=== PATIENT | male | born 1970 | race Caucasian/White ===

== ENCOUNTER 2017-08-04 17:12 | Inpatient (IN) | payer OTHER ==
[2017-08-04 20:08] VITALS: BMI 21.9
--- NOTE | 2017-08-05 00:40 | HP ---
COWS - Scale Resting Pulse: 0= [place] 80 or Below Sweatin=Flushed/Facial Moisture Restless Observation: 1= Difficult to Sit Still Pupil Size: 1= Pupils >than Normal Bone or Joint Aches: 2= Severe Diffuse Aches Runny Nose/ Eye Tearin= Runny Nose/Eyes GI Upset > 30mins: 1= Stomach Cramp Tremor Observation: 2= Slight Tremor Visible Yawning Observation: 1= 1-2x During Session Anxiety or Irritability: 1=Feels Anxious/Irritable Goose Flesh Skin: 0=Smooth Skin COWS Score: 13 CIWA Score - CIWA Score Nausea/Vomitin-Mild Nausea/No Vomiting Muscle Tremors: 4-Moderate,w/Arms Extend Anxiety: 3 Agitation: 3 Paroxysmal Sweats: 2 Orientation: 0-Oriented Tacttile Disturbances: 0-None Auditory Disturbances: 0-None Visual Disturbances: 0-None Headache: 0-None Present CIWA-Ar Total Score: 13 Admission ROS S - HPI Chief Complaint: heroin and alcohol withdrawal symptoms Allergies/Adverse Reactions: Allergies Allergy/AdvReac Type Severity Reaction Status Date / Time No Known Allergies Allergy Verified 08/04/17 23:44 History of Present Illness: 47 years old male with a long history of alcohol and heroin withdrawal symptoms is seeking admission to detox. Patient has been to previous detox and reports 2 years of sobriety. He has medical history of Hep. C, anxiety and Depression. Denies suicide attempt and suicidal ideation at this time. Exam Limitations: No Limitations - Ebola screening Have you traveled outside of the country in the last 21 days: No (N) Have you had contact with anyone from an Ebola affected area: No Have you been sick,other than usual withdrawal symptoms: No Do you have a fever: No - Review of Systems Constitutional: Loss of Appetite, Malaise, Night Sweats, Changes in sleep EENT: reports: No Symptoms Reported Respiratory: reports: No Symptoms reported GI: reports: Nausea, Poor Appetite, Poor Fluid Intake, Abdominal cramping : reports: No Symptoms Reported Musculoskeletal: reports: Back Pain Integumentary: reports: Dryness, Flushing Neuro: reports: Tingling, Tremors Endocrine: reports: No Symptoms Reported Hematology: reports: No Symptoms Reported Psychiatric: reports: Mood/Affect Appropiate, Orientated x3, Anxious Other Systems: Reviewed and Negative Patient History - Patient Medical History Hx Anemia: No Hx Asthma: No Hx Chronic Obstructive Pulmonary Disease (COPD): No Hx Cancer: No Hx Cardiac Disorders: No Hx Congestive Heart Failure: No Hx Hypertension: No Hx Hypercholesterolemia: No Hx Pacemaker: No HX Cerebrovascular Accident: No Hx Seizures: No Hx Dementia: No Hx Diabetes: No Hx Gastrointestinal Disorders: No Hx Liver Disease: No Hx Genitourinary Disorders: No Hx Sexually Transmitted Disorders: No Hx Renal Disease (ESRD): No Hx Thyroid Disease: No Hx Human Immunodeficiency Virus (HIV): No Hx Hepatitis C: Yes (not treated) Hx Depression: Yes (no meds, never hospitalized) Hx Suicide Attempt: No Hx Bipolar Disorder: No Hx Schizophrenia: No Other Medical History: Anxiety - Not on medication - Patient Surgical History Past Surgical History: No Hx Neurologic Surgery: No Hx Cataract Extraction: No Hx Cardiac Surgery: No Hx Lung Surgery: No Hx Abdominal Surgery: No Hx Appendectomy: No Hx Cholecystectomy: No Hx Genitourinary Surgery: No Hx Orthopedic Surgery: No Anesthesia Reaction: No - PPD History Previous Implant?: Yes Documented Results: Negative w/proof - Reproductive History Patient is a Female of Child Bearing Age (11 -55 yrs old): No (male) - Smoking Cessation Smoking history: Current every day smoker Have you smoked in the past 12 months: Yes Aproximately how many cigarettes per day: 20 Hx Chewing Tobacco Use: No Initiated information on smoking cessation: Yes 'Breaking Loose' booklet given: 08/05/17 - Substance & Tx. History Hx Alcohol Use: Yes Substance Use Type: Heroin Hx Substance Use Treatment: Yes - Substances Abused Alcohol Route: Oral Frequency: Daily Amount used: LIQUOR- 1 PINT, BEER- 2 SIX PACK Age of first use: 20 Date of Last Use: 08/04/17 Heroin Route: Injection Frequency: Daily Amount used: 15 BAGS Age of first use: 31 Date of Last Use: 08/04/17 Family Disease History - Family Disease History Family Disease History: Diabetes: Mother (living, ), Heart Disease: Mother, Other: Father (living, healthy, etoh, drugs), Mother, Brother (three living, hep c, etoh, drugs), Sister (one - - drugs), Son (four sons - healthy) , Daughter (two daughters - healthy) Admission Physical Exam [facility] - Vital Signs Vital Signs: Vital Signs - 24 hr 08/04/17 20:07 Temperature 98.7 F Pulse Rate 72 Respiratory 19 Rate Blood Pressure 198/63 - Physical General Appearance: Yes: Moderate Distress, Tremorous, Irritable, Sweating, Anxious HEENTM: Yes: EOMI, Normal ENT Inspection, Normal Voice, ODILIA Respiratory: Yes: Lungs Clear, Normal Breath Sounds, No Respiratory Distress Neck: Yes: Supple Breast: Yes: Breast Exam Deferred Cardiology: Yes: Regular Rhythm, Regular Rate Abdominal: Yes: Normal Bowel Sounds, Soft Genitourinary: Yes: Within Normal Limits Back: Yes: Normal Inspection Musculoskeletal: Yes: Back pain Extremities: Yes: Tremors Neurological: Yes: Alert, Normal Mood/Affect Integumentary: Yes: Dry Lymphatic: Yes: Within Normal Limits - Diagnostic (1) Uncomplicated opioid dependence Current Visit: Yes Status: Chronic (2) Depression Current Visit: Yes Status: Chronic Qualifiers: Depression Type: unspecified Qualified Code(s): F32.9 - Major depressive disorder, single episode, unspecified (3) Anxiety Current Visit: Yes Status: Chronic (4) Alcohol dependence with uncomplicated withdrawal Current Visit: Yes Status: Chronic (5) Nicotine dependence Current Visit: Yes Status: Chronic Qualifiers: Nicotine product type: cigarettes Substance use status: uncomplicated Qualified Code(s): F17.210 - Nicotine dependence, cigarettes, uncomplicated Comment: counseled cessation - not ready (6) Hepatitis C Current Visit: Yes Status: Chronic Qualifiers: Viral hepatitis chronicity: chronic Hepatic coma status: without hepatic coma Qualified Code(s): B18.2 - Chronic viral hepatitis C Cleared for Admission [facility] - Detox or Rehab [facility] Level of Care: Medically Managed Detox Regimen/Protocol: Methadone/Librium S Breath Alcohol Content Breath Alcohol Content: 0 Urine Drug Screen - Results Drug Screen Negative: No Urine Drug Screen Results: OPI-Opiates
[2017-08-05] MEDS ORDERED: chlordiazePOXIDE HCL 25 MG CAPSULE PO ONE (00:47)
[2017-08-05] MEDS ORDERED: ACETAMINOPHEN 325 MG TABLET (FP) PO PRN (00:47)
[2017-08-05] MEDS ORDERED: MAG HYDROX/AL HYDROX/SIMETH 30 ML UNIT-DOSE CUP PO PRN (00:47)
[2017-08-05] MEDS ORDERED: MENTHOL/PHENOL 1 EACH UD MM PRN (00:47)
[2017-08-05] MEDS ORDERED: MAGNESIUM HYDROX 2400MG/30ML ORAL SUSPENSION 30 ML CUP PO PRN (00:47)
[2017-08-05] MEDS ORDERED: LOPERAMIDE HCL 2 MG CAPSULE PO PRN (00:47)
[2017-08-05] MEDS ORDERED: guaiFENesin/D-METHORPHAN HB 10 ML UNIT-DOSE CUPS PO PRN (00:47)
[2017-08-05] MEDS ORDERED: NICOTINE POLACRILEX 2 MG GUM BC PRN (00:47)
[2017-08-05] MEDS ORDERED: P-EPHED 60MG/TRIPROLIDI 2.5MG TABLET PO PRN (00:47)
[2017-08-05] MEDS ORDERED: METHADONE HCL 10 MG TABLET (FOR DETOX USE ONLY) PO ONE ×3 (00:47→22:00)
[2017-08-05] MEDS ORDERED: IBUPROFEN 400 MG TABLET (FP) PO PRN (00:47)
[2017-08-05] MEDS ORDERED: chlordiazePOXIDE HCL 25 MG CAPSULE PO PRN (00:47)
[2017-08-05] MEDS ORDERED: MAGNESIUM CITRATE 300 ML BOTTLE PO PRN (00:47)
[2017-08-05] MEDS: chlordiazePOXIDE HCL 25 MG CAPSULE PO SCH ×4 (06:00→22:28)
[2017-08-05 10:23] LABS: HEMATOCRIT 38.9 % (35.4-49); HEMOGLOBIN 13.5 GM/dL (11.7-16.9); MCH 32.8 pg (25.7-33.7); MCHC 34.6 g/dl (32.0-35.9); MEAN CELL VOLUME 94.7 fl (80-96); MEAN PLT VOLUME 9.2 fl (7.5-11.1); PLATELET COUNT 192 K/MM3 (134-434); RBC 4.11 M/mm3 (4.00-5.60); WHITE BLOOD COUNT 5.3 K/mm3 (4.0-10.0)
[2017-08-05] MEDS: PRENATAL VITAMINS W/ FOLIC ACID TABLET (FP) PO SCH (10:51)
[2017-08-05] MEDS: NICOTINE 14 MG/24 HOURS TOPICAL PATCH TD SCH (10:51)
[2017-08-05 11:07] LABS: CHLORIDE 107 mmol/L (98-107); POTASSIUM 3.9 mmol/L (3.5-5.1); SODIUM 143 mmol/L (136-145)
[2017-08-05 12:13] LABS: ALBUMIN 3.3 g/dl (3.4-5.0); ALK PHOS 81 U/L (45-117); ANION GAP 7 (8-16); BILIRUBIN,TOTAL 0.7 mg/dL (0.2-1.0); BLOOD UREA NITROGEN 14 mg/dL (7-18); CALCIUM 8.6 mg/dL (8.5-10.1); CO2 29 mmol/L (21-32); CREATININE 0.6 mg/dL (0.7-1.3); GLUCOSE,RANDOM 92 mg/dL (74-106); SGOT/AST 111 U/L (15-37); SGPT/ALT 100 U/L (12-78); TOT PROT 7.1 g/dl (6.4-8.2)
--- NOTE | 2017-08-05 13:33 | PN ---
[facility] CIWA - CIWA Score Nausea/Vomitin-No Nausea/No Vomiting Muscle Tremors: 4-Moderate,w/Arms Extend Anxiety: 4-Mod. Anxious/Guarded Agitation: 4-Moderately Restless Paroxysmal Sweats: 1-Minimal Palms Moist Orientation: 0-Oriented Tacttile Disturbances: 3-Moderate Itch/Numb/Burn Auditory Disturbances: 0-None Visual Disturbances: 0-None Headache: 0-None Present CIWA-Ar Total Score: 16 S COWS - Scale Resting Pulse: 0= [place] 80 or Below Sweatin= Chills/Flushing Restless Observation: 3= Extraneous Movement Pupil Size: 0= Normal to Room Light Bone or Joint Aches: 4=Acute Joint/Muscle Pain Runny Nose/ Eye Tearin= Nasal Congestion GI Upset > 30mins: 0= None Tremor Observation of Outstretched Hands: 2= Slight Tremor Visible Yawning Observation: 1= 1-2x During Session Anxiety or Irritability: 2=Irritable/Anxious Goose Flesh Skin: 0=Smooth Skin COWS Score: 14 S Progress Note (SOAP) Subjective: ANXIETY,TREMORS,SWEATS/CHILLS,MUSCLE ACHES. Objective: 08/05/17 13:32 Vital Signs Temperature 96.7 F L 08/05/17 09:48 Pulse Rate 70 08/05/17 09:48 Respiratory Rate 18 08/05/17 09:48 Blood Pressure 101/68 08/05/17 09:48 O2 Sat by Pulse Oximetry (%) Laboratory Tests 08/05/17 08/05/17 08/05/17 07:30 07:30 07:30 WBC 5.3 RBC 4.11 Hgb 13.5 Hct 38.9 MCV 94.7 MCH 32.8 MCHC 34.6 RDW 14.0 Plt Count 192 MPV 9.2 Sodium 143 Potassium 3.9 Chloride 107 Carbon Dioxide 29 Anion Gap 7 L BUN 14 Creatinine 0.6 L Creat Clearance w eGFR > 60 Random Glucose 92 Calcium 8.6 Total Bilirubin 0.7 D AST 111 H ALT 100 H Alkaline Phosphatase 81 D Total Protein 7.1 Albumin 3.3 L RPR Titer HIV 1&2 Antibody Screen Negative HIV P24 Antigen Negative 08/05/17 07:30 WBC RBC Hgb Hct MCV MCH MCHC RDW Plt Count MPV Sodium Potassium Chloride Carbon Dioxide Anion Gap BUN Creatinine Creat Clearance w eGFR Random Glucose Calcium Total Bilirubin AST ALT Alkaline Phosphatase Total Protein Albumin RPR Titer Nonreactive HIV 1&2 Antibody Screen HIV P24 Antigen Assessment: 08/05/17 13:32 WITHDRAWAL SX Plan: CONTINUE DETOX
--- NOTE | 2017-08-05 13:53 | EKG ---
Test Reason : Blood Pressure : / mmHG Vent. Rate : 057 BPM Atrial Rate : 057 BPM P-R Int : 164 ms QRS Dur : 094 ms QT Int : 388 ms P-R-T Axes : 041 020 035 degrees QTc Int : 377 ms SINUS BRADYCARDIA OTHERWISE NORMAL ECG NO PREVIOUS ECGS AVAILABLE Confirmed by RONALD MONROY, GAYLA ([id number]) on 08/05/2017 1:52:58 PM Referred By: Confirmed By:GAYLA CARDENAS MD
--- NOTE | 2017-08-05 14:00 | CONSULT ---
[facility] Psychiatric Consult - Data Date of interview: 08/05/17 Admission source: [facility] Substance Abuse History: Smoking history: Current every day smoker. Have you smoked in the past 12 months: Yes. Aproximately how many cigarettes per day: 20. Hx Chewing Tobacco Use: No. Initiated information on smoking cessation: Yes. 'Breaking Loose' booklet given: 08/05/17. - Substance & Tx. History. Hx Alcohol Use: Yes. Substance Use Type: Heroin. Hx Substance Use Treatment: Yes. - Substances Abused. Alcohol. Route: Oral. Frequency: Daily. Amount used: LIQUOR- 1 PINT, BEER- 2 SIX PACK. Age of first use: 20. Date of Last Use: 08/04/17. Heroin. Route: Injection. Frequency: Daily. Amount used: 15 BAGS. Age of first use: 31. Date of Last Use: 08/04/17 Additional Comment: Urine Drug Screen Results: OPI-Opiates.Noted.
[2017-08-05 19:59] LABS: URINE APPEARANCE CLEAR; URINE BILIRUBIN NEGATIVE (<2.0 mg/dL); URINE COLOR STRAW; URINE GLUCOSE (UA) NEGATIVE (NEGATIVE); URINE KETONE NEGATIVE (NEGATIVE); URINE LEUK ESTERASE NEGATIVE (NEGATIVE); URINE NITRITE NEGATIVE (NEGATIVE); URINE PROTEIN NEGATIVE (NEGATIVE); URINE UROBILINOGEN NEGATIVE mg/dL (0.2-1.0)
[2017-08-05] MEDS ORDERED: MELATONIN 5 MG TABLETS PO PRN (22:00)
[2017-08-05] MEDS ORDERED: THIAMINE HCL 100 MG TABLET (FP) PO SCH (22:00)
[2017-08-06] MEDS: chlordiazePOXIDE HCL 25 MG CAPSULE PO SCH ×2 (05:47→10:46)
[2017-08-06] MEDS ORDERED: METHADONE HCL 10 MG TABLET (FOR DETOX USE ONLY) PO SCH (10:00)
[2017-08-06] MEDS ORDERED: METHADONE HCL 5 MG TABLET (FOR DETOX USE ONLY) PO SCH (10:00)
[2017-08-06] MEDS: PRENATAL VITAMINS W/ FOLIC ACID TABLET (FP) PO SCH (10:46)
[2017-08-06] MEDS: NICOTINE 14 MG/24 HOURS TOPICAL PATCH TD SCH (10:46)
--- NOTE | 2017-08-06 12:36 | PN ---
S CIWA - CIWA Score Nausea/Vomitin-No Nausea/No Vomiting Muscle Tremors: 4-Moderate,w/Arms Extend Anxiety: 4-Mod. Anxious/Guarded Agitation: 4-Moderately Restless Paroxysmal Sweats: 1-Minimal Palms Moist Orientation: 0-Oriented Tacttile Disturbances: 0-None Auditory Disturbances: 0-None Visual Disturbances: 0-None Headache: 0-None Present CIWA-Ar Total Score: 13 BHS COWS - Scale Resting Pulse: 0= [place] 80 or Below Sweatin= Chills/Flushing Restless Observation: 3= Extraneous Movement Pupil Size: 2= Moderately Dilated Bone or Joint Aches: 1= Mild Discomfort Runny Nose/ Eye Tearin= Nasal Congestion GI Upset > 30mins: 0= None Tremor Observation of Outstretched Hands: 1= Tremor [place], Not Seen Yawning Observation: 1= 1-2x During Session Anxiety or Irritability: 2=Irritable/Anxious Goose Flesh Skin: 0=Smooth Skin COWS Score: 12 S Progress Note (SOAP) Subjective: SLIGHT ANXIETY,SWEATS/CHILLS. PT IS OOB AMBULATING ON UNIT WITH STEADY GAIT. PT REQUESTS MEDICATION TAPER ADJUSTMENT FOR EARLY DISCHARGE.. Objective: 08/06/17 12:34 ALERT O X 3. Vital Signs 08/06/17 08/06/17 06:28 09:17 Temperature 96.5 F L 96.5 F L Pulse Rate 56 L 57 L Respiratory 18 18 Rate Blood Pressure 115/78 120/71 Laboratory Tests 08/05/17 08/05/17 08/05/17 07:30 07:30 07:30 WBC 5.3 RBC 4.11 Hgb 13.5 Hct 38.9 MCV 94.7 MCH 32.8 MCHC 34.6 RDW 14.0 Plt Count 192 MPV 9.2 Sodium 143 Potassium 3.9 Chloride 107 Carbon Dioxide 29 Anion Gap 7 L BUN 14 Creatinine 0.6 L Creat Clearance w eGFR > 60 Random Glucose 92 Calcium 8.6 Total Bilirubin 0.7 D AST 111 H ALT 100 H Alkaline Phosphatase 81 D Total Protein 7.1 Albumin 3.3 L Urine Color Urine Appearance Urine pH Ur Specific [place] Urine Protein Urine Glucose (UA) Urine Ketones Urine Blood Urine Nitrite Urine Bilirubin Urine Urobilinogen Ur Leukocyte Esterase RPR Titer HIV 1&2 Antibody Screen Negative HIV P24 Antigen Negative 08/05/17 08/05/17 07:30 15:00 WBC RBC Hgb Hct MCV MCH MCHC RDW Plt Count MPV Sodium Potassium Chloride Carbon Dioxide Anion Gap BUN Creatinine Creat Clearance w eGFR Random Glucose Calcium Total Bilirubin AST ALT Alkaline Phosphatase Total Protein Albumin Urine Color Straw Urine Appearance Clear Urine pH 9.0 H Ur Specific [place] 1.009 Urine Protein Negative Urine Glucose (UA) Negative Urine Ketones Negative Urine Blood Negative Urine Nitrite Negative Urine Bilirubin Negative Urine Urobilinogen Negative Ur Leukocyte Esterase Negative RPR Titer Nonreactive HIV 1&2 Antibody Screen HIV P24 Antigen 08/06/17 12:35 Assessment: 08/06/17 12:34 WITHDRAWAL SX Plan: CONTINUE DETOX METHADONE TAPER ADJUSTED DIRECTED.
[2017-08-06 13:19] VITALS: BP 110/73; PULSE 72; TEMP 96.1
--- NOTE | 2017-08-06 18:15 | DS ---
[facility] Detox Discharge Summary Admission Date: 08/04/17 Discharge Date: 08/06/17 - History Present History: Alcohol Dependence, Opioid Dependence Additional Comments: Patient declined to continue with detox stating family matters. All efforts to encourage completion and staying in treatment including adjustment of tapered methadone dose failed. Patient is alert o x 3. In NAD. Pertinent Past History: Please see dx below. - Physical Exam Results Vital Signs: Vital Signs Temperature 96.1 F L 08/06/17 13:18 Pulse Rate 72 08/06/17 13:18 Respiratory Rate 18 08/06/17 13:18 Blood Pressure 110/73 08/06/17 13:18 O2 Sat by Pulse Oximetry (%) Pertinent Admission Physical Exam Findings: Withdrawal sx Laboratory Tests 08/05/17 08/05/17 08/05/17 07:30 07:30 07:30 WBC 5.3 RBC 4.11 Hgb 13.5 Hct 38.9 MCV 94.7 MCH 32.8 MCHC 34.6 RDW 14.0 Plt Count 192 MPV 9.2 Sodium 143 Potassium 3.9 Chloride 107 Carbon Dioxide 29 Anion Gap 7 L BUN 14 Creatinine 0.6 L Creat Clearance w eGFR > 60 Random Glucose 92 Calcium 8.6 Total Bilirubin 0.7 D AST 111 H ALT 100 H Alkaline Phosphatase 81 D Total Protein 7.1 Albumin 3.3 L Urine Color Urine Appearance Urine pH Ur Specific [place] Urine Protein Urine Glucose (UA) Urine Ketones Urine Blood Urine Nitrite Urine Bilirubin Urine Urobilinogen Ur Leukocyte Esterase RPR Titer HIV 1&2 Antibody Screen Negative HIV P24 Antigen Negative 08/05/17 08/05/17 07:30 15:00 WBC RBC Hgb Hct MCV MCH MCHC RDW Plt Count MPV Sodium Potassium Chloride Carbon Dioxide Anion Gap BUN Creatinine Creat Clearance w eGFR Random Glucose Calcium Total Bilirubin AST ALT Alkaline Phosphatase Total Protein Albumin Urine Color Straw Urine Appearance Clear Urine pH 9.0 H Ur Specific [place] 1.009 Urine Protein Negative Urine Glucose (UA) Negative Urine Ketones Negative Urine Blood Negative Urine Nitrite Negative Urine Bilirubin Negative Urine Urobilinogen Negative Ur Leukocyte Esterase Negative RPR Titer Nonreactive HIV 1&2 Antibody Screen HIV P24 Antigen - Treatment Hospital Course: Discharged Condition Good - Medication Discharge Medications: Ambulatory Orders NK [No Known Home Medication] 08/04/17 - Diagnosis (1) Alcohol dependence with uncomplicated withdrawal Status: Acute (2) Hepatitis C Status: Chronic Qualifiers: Viral hepatitis chronicity: chronic Hepatic coma status: without hepatic coma Qualified Code(s): B18.2 - Chronic viral hepatitis C (3) Nicotine dependence Status: Acute Qualifiers: Nicotine product type: cigarettes Substance use status: in withdrawal Qualified Code(s): F17.213 - Nicotine dependence, cigarettes, with withdrawal (4) Uncomplicated opioid dependence Status: Acute - AMA Did Patient Leave Against Medical Advice: Yes (AMA)
[2017-08-07] MEDS ORDERED: chlordiazePOXIDE 5 MG CAPSULE PO SCH (05:00)
[2017-08-07] MEDS ORDERED: METHADONE HCL 5 MG TABLET (FOR DETOX USE ONLY) PO SCH (10:00)
[2017-08-07] MEDS ORDERED: METHADONE HCL 10 MG TABLET (FOR DETOX USE ONLY) PO SCH (10:00)
[2017-08-08] MEDS ORDERED: chlordiazePOXIDE HCL 10 MG CAPSULE PO SCH (05:00)
[2017-08-08] MEDS ORDERED: METHADONE HCL 5 MG TABLET (FOR DETOX USE ONLY) PO SCH (06:00)
[2017-08-09] MEDS ORDERED: METHADONE HCL 10 MG TABLET (FOR DETOX USE ONLY) PO SCH (10:00)
[2017-08-10] MEDS ORDERED: METHADONE HCL 5 MG TABLET (FOR DETOX USE ONLY) PO SCH (06:00)
== END 2017-08-06 16:20 | disposition left against medical advice (07) | DRG 770 ==
LOC: YASAS 17:12 → Y3N 22:54
PROVIDERS: ADMIT Internal Medicine; ATTEND Internal Medicine
PROC: HZ2ZZZZ Detoxification Services for Substance Abuse Treatment (ICD-10-PCS; principal; 2017-08-04)
DX: F11.20 Opioid dependence, uncomplicated (principal); F10.230 Alcohol dependence with withdrawal, uncomplicated; F17.213 Nicotine dependence, cigarettes, with withdrawal; B18.2 Chronic viral hepatitis C; F32.9 Major depressive disorder, single episode, unspecified; F41.9 Anxiety disorder, unspecified
CPT/HCPCS: 36415; 80053; 81003; 85027; 86593; 87389; 93005; 93010

== ENCOUNTER 2021-04-15 14:58 | Inpatient (IN) | payer OTHER ==
[2021-04-15] MEDS ORDERED: diazePAM CARPU-JECT 10 MG/2 ML DISP.SYRIN IVPUSH ONE (15:19)
[2021-04-15] MEDS ORDERED: diazePAM CARPU-JECT 10 MG/2 ML DISP.SYRIN ONE ×2 (15:20→15:28)
[2021-04-15] MEDS ORDERED: SODIUM CHLORIDE 0.9% 500 ML INFUS.BAG IV ONE (15:30)
[2021-04-15] MEDS ORDERED: LORazepam 2 MG/ML SDV VIAL IVPUSH ONE (15:30)
[2021-04-15] MEDS ORDERED: RAPID SEQUENCE INTUBATION KIT NR ONE (15:40)
[2021-04-15] MEDS ORDERED: PROPOFOL 1,000,000 MCG/100 ML VIAL ONE (15:43)
[2021-04-15] MEDS ORDERED: PROPOFOL 20 ML ONE (15:43)
[2021-04-15] MEDS ORDERED: PROPOFOL 1,000,000 MCG/100 ML VIAL IVPB SCH (16:00)
[2021-04-15 16:08] LABS: BASO % 1.1 % (0-2.0); EOS % 0.8 % (0-4.5); HEMATOCRIT 41.2 % (35.4-49); HEMOGLOBIN 13.5 GM/dL (11.7-16.9); MCH 36.7 pg (25.7-33.7); MCHC 32.8 g/dl (32.0-35.9); MEAN CELL VOLUME 111.8 fl (80-96); MEAN PLT VOLUME 10.2 fl (7.5-11.1); MONO % 6.7 % (3.8-10.2); NEUT % 61.4 % (42.8-82.8); PLATELET COUNT 124 10^3/uL (134-434); RBC 3.68 M/mm3 (4.00-5.60); RDW 14.1 % (11.9-15.9); WHITE BLOOD COUNT 9.6 K/mm3 (4.0-10.0)
[2021-04-15 16:24] LABS: INR 1.57 (0.83-1.09); PROTHROMBIN TIME (PATIENT) 18.1 SEC (9.7-13.0)
[2021-04-15 16:26] LABS: ACTIVATED PTT 33.6 SECONDS (25.2-36.5)
[2021-04-15] MEDS ORDERED: ROCURONIUM BROMIDE 50 MG/5 ML VIAL IV ONE (16:42)
[2021-04-15 16:47] LABS: ARTERIAL BLD GAS O2 SATURATION 95.1 % (95-98); ARTERIAL BLOOD GAS BASE EXCESS -5.2 mmol/L (-2-2); ARTERIAL BLOOD GAS pH 7.329 (7.350-7.450)
[2021-04-15] MEDS: PROPOFOL 1,000,000 MCG/100 ML VIAL IVPB SCH (17:04)
[2021-04-15 17:30] LABS: ALLENS TEST POSITIVE
[2021-04-15 17:32] LABS: VENT RATE 14
[2021-04-15] MEDS ORDERED: FOLIC ACID INJECTION - 1 MG, THIAMINE HCL 100 MG, MULTIVIT INJECTION ADULT 10 ML in SOD... IVPB ONE (17:42)
[2021-04-15 17:45] LABS: MACROCYTOSIS 3+; PLATELET ESTIMATE DECREASED
[2021-04-15 17:54] LABS: LACTIC ACID 10.2 mmol/L (0.4-2.0)
[2021-04-15] MEDS ORDERED: LACTATED RINGERS SOLUTION 1000 ML INFUS.BAG IV ONE (17:56)
[2021-04-15 17:57] LABS: CHLORIDE 106 mmol/L (98-107); SODIUM 144 mmol/L (136-145)
[2021-04-15 17:59] LABS: ALBUMIN 2.5 g/dl (3.4-5.0); ANION GAP 18 MMOL/L (8-16); CALCIUM 9.1 mg/dL (8.5-10.1); CO2 20 mmol/L (21-32)
[2021-04-15 18:00] LABS: BLOOD UREA NITROGEN 8.6 mg/dL (7-18); GLUCOSE,RANDOM 102 mg/dL (74-106)
[2021-04-15 18:02] LABS: CREATININE 0.7 mg/dL (0.55-1.3); SGOT/AST 241 U/L (15-37); SGPT/ALT 88 U/L (13-61)
[2021-04-15 18:04] LABS: BILIRUBIN,TOTAL 3.8 mg/dL (0.2-1); TOT PROT 9.7 g/dl (6.4-8.2)
[2021-04-15 18:05] LABS: ALK PHOS 160 U/L (45-117)
[2021-04-15] MEDS ORDERED: LACTULOSE 20 GM/30 ML UDC (FOR ORAL USE ONLY) PO PRN ×2 (18:16→18:20)
[2021-04-15 18:37] LABS: LIPASE 6667 U/L (73-393)
[2021-04-15 19:07] LABS: MAGNESIUM 1.7 mg/dL (1.8-2.4)
[2021-04-15 19:10] LABS: TRIGLYCERIDES 91 mg/dL (0-150)
[2021-04-15 19:19] LABS: ARTERIAL BLD GAS O2 SATURATION 98.7 % (95-98); ARTERIAL BLOOD GAS PO2 128.3 mmHg (80-100); ARTERIAL BLOOD GAS pH 7.431 (7.350-7.450)
[2021-04-15 19:20] LABS: ALLENS TEST POSITIVE
[2021-04-15 19:21] LABS: VENT MODE DC; VENT RATE 18
[2021-04-15] MEDS: MIDAZOLAM IN 0.9 % SOD.CHLORID 100 MG/100 ML PLAST..BAG IVPB SCH (20:18)
[2021-04-15] MEDS: LACTATED RINGERS SOLUTION 1,000 ML/1,000 ML INFUS.BAG IV SCH (20:19)
[2021-04-15] MEDS: KCL 10 MEQ IVPB 10 MEQ/100 ML INFUS.BAG IVPB SCH ×2 (20:41→22:42)
[2021-04-15] MEDS: CHLORHEXIDINE GLUCONATE 4% CLEANSER FOR DECOLONIZATION TP SCH (22:42)
[2021-04-15] MEDS: MUPIROCIN 2% TOPICAL OINTMENT FOR DECOLONIZATION NS SCH (22:42)
[2021-04-15] MEDS ORDERED: KETOROLAC TROMETHAMINE 30 MG/1 ML VIAL IVPUSH ONE (23:02)
[2021-04-15] MEDS ORDERED: ROCURONIUM BROMIDE IVPB SCH (23:30)
[2021-04-15] MEDS ORDERED: ROCURONIUM BROMIDE 500 MG/300 ML BAG IVPB SCH (23:45)
[2021-04-16 01:26] LABS: EPI CELLS 15 /uL (0-25.1); HYALINE CASTS 2 /uL (0-3.1); URINE APPEARANCE CLEAR; URINE BACTERIA 4 /uL (0-1359); URINE BILIRUBIN 1+ (NEGATIVE); URINE COLOR DK YELLOW; URINE GLUCOSE (UA) NEGATIVE (NEGATIVE); URINE KETONE 1+ (NEGATIVE); URINE LEUK ESTERASE TRACE (NEGATIVE); URINE NITRITE NEGATIVE (NEGATIVE); URINE PROTEIN 1+ (NEGATIVE); URINE RBC 48 /uL (0-23.9); URINE WBC 17 /uL (0-25.8)
[2021-04-16] MEDS: KCL 10 MEQ IVPB 10 MEQ/100 ML INFUS.BAG IVPB SCH (02:13)
[2021-04-16 07:15] LABS: BASO % 0.1 % (0-2.0); HEMATOCRIT 35.8 % (35.4-49); HEMOGLOBIN 11.8 GM/dL (11.7-16.9); MCH 36.7 pg (25.7-33.7); MEAN CELL VOLUME 111.1 fl (80-96); MEAN PLT VOLUME 10.6 fl (7.5-11.1); MONO % 5.4 % (3.8-10.2); NEUT % 88.5 % (42.8-82.8); PLATELET COUNT 104 10^3/uL (134-434); RBC 3.23 M/mm3 (4.00-5.60); RDW 14.5 % (11.9-15.9); WHITE BLOOD COUNT 9.7 K/mm3 (4.0-10.0)
[2021-04-16 07:22] LABS: INR 1.77 (0.83-1.09); PROTHROMBIN TIME (PATIENT) 20.5 SEC (9.7-13.0)
[2021-04-16 07:25] LABS: ACTIVATED PTT 34.2 SECONDS (25.2-36.5)
[2021-04-16 07:50] LABS: MAGNESIUM 1.5 mg/dL (1.8-2.4)
[2021-04-16 07:53] LABS: CREATININE 0.6 mg/dL (0.55-1.3); PHOSPHOROUS 2.2 mg/dL (2.5-4.9)
[2021-04-16 07:54] LABS: TOT PROT 8.4 g/dl (6.4-8.2)
[2021-04-16 07:55] LABS: BILIRUBIN,TOTAL 2.4 mg/dL (0.2-1)
[2021-04-16] MEDS ORDERED: MAGNESIUM SULF 50% (8.12 MEQ/2 ML-1 GM VIAL) IVPB ONE (09:04)
[2021-04-16] MEDS ORDERED: NAPH,MB-DB/K PH,MBDB POWDER PACKET PO ONE (09:04)
[2021-04-16] MEDS: THIAMINE HCL 200 MG/2 ML VIAL IVPB SCH (09:56)
[2021-04-16] MEDS: ENOXAPARIN NA (PORCINE) 40 MG/0.4 ML DISP.SYRIN SQ SCH (09:57)
[2021-04-16] MEDS: PANTOPRAZOLE SODIUM 40 MG VIAL IVPUSH SCH (09:57)
[2021-04-16] MEDS: FOLIC ACID 1 MG TABLET (FP) PO SCH (09:57)
[2021-04-16] MEDS: MUPIROCIN 2% TOPICAL OINTMENT FOR DECOLONIZATION NS SCH (09:57)
[2021-04-16] MEDS: PROPOFOL 1,000,000 MCG/100 ML VIAL IVPB SCH ×2 (09:58→13:40)
[2021-04-16 11:58] LABS: BILIRUBIN,DIRECT 1.8 mg/dL (0.0-0.2)
[2021-04-16 12:02] LABS: N-TERMINAL BNP 241.2 pg/ml (5-125)
[2021-04-16] MEDS ORDERED: PHYTONADIONE 10 MG/1 ML AMP IVPB ONE (14:56)
[2021-04-17] MEDS: PROPOFOL 1,000,000 MCG/100 ML VIAL IVPB SCH ×2 (00:29→05:31)
[2021-04-17] MEDS: LACTATED RINGERS SOLUTION 1,000 ML/1,000 ML INFUS.BAG IV SCH ×2 (05:30→13:35)
[2021-04-17] MEDS: MIDAZOLAM IN 0.9 % SOD.CHLORID 100 MG/100 ML PLAST..BAG IVPB SCH ×2 (05:30→05:31)
[2021-04-17 07:38] LABS: BASO % 0.4 % (0-2.0); EOS % 0.3 % (0-4.5); HEMATOCRIT 34.2 % (35.4-49); HEMOGLOBIN 11.8 GM/dL (11.7-16.9); LYMPH % 13.8 % (8-40); MCHC 34.4 g/dl (32.0-35.9); MEAN CELL VOLUME 110.3 fl (80-96); MONO % 6.7 % (3.8-10.2); NEUT % 78.8 % (42.8-82.8); PLATELET COUNT 81 10^3/uL (134-434); RDW 14.4 % (11.9-15.9); WHITE BLOOD COUNT 9.6 K/mm3 (4.0-10.0)
[2021-04-17 08:05] LABS: CALCIUM 7.4 mg/dL (8.5-10.1)
[2021-04-17 08:07] LABS: ALBUMIN 1.6 g/dl (3.4-5.0); BLOOD UREA NITROGEN 10.6 mg/dL (7-18)
[2021-04-17 08:10] LABS: ALBUMIN 1.6 g/dl (3.4-5.0); CREATININE 0.5 mg/dL (0.55-1.3); PHOSPHOROUS 2.2 mg/dL (2.5-4.9); TOT PROT 7.1 g/dl (6.4-8.2)
[2021-04-17 08:13] LABS: BILIRUBIN,DIRECT 1.6 mg/dL (0.0-0.2)
[2021-04-17 08:14] LABS: BILIRUBIN,TOTAL 2.1 mg/dL (0.2-1); TOT PROT 7.2 g/dl (6.4-8.2)
[2021-04-17 08:26] LABS: INR 1.82 (0.83-1.09); PROTHROMBIN TIME (PATIENT) 21.1 SEC (9.7-13.0)
[2021-04-17] MEDS: FOLIC ACID 1 MG TABLET (FP) PO SCH (09:20)
[2021-04-17] MEDS: MUPIROCIN 2% TOPICAL OINTMENT FOR DECOLONIZATION NS SCH ×2 (09:21→22:30)
[2021-04-17] MEDS: THIAMINE HCL 200 MG/2 ML VIAL IVPB SCH (09:21)
[2021-04-17] MEDS: ENOXAPARIN NA (PORCINE) 40 MG/0.4 ML DISP.SYRIN SQ SCH (09:21)
[2021-04-17] MEDS: PANTOPRAZOLE SODIUM 40 MG VIAL IVPUSH SCH (09:21)
[2021-04-17] MEDS: CEFTRIAXONE 1 GM in DEXTROSE 5%-WATER - 50 ML IVPB SCH (11:30)
[2021-04-17] MEDS ORDERED: cefTRIAXone SODIUM 1 GM VIAL ONE (11:39)
[2021-04-17] MEDS ORDERED: DEXTROSE 5%-WATER - 50 ML IVPB ONE (11:39)
[2021-04-17] MEDS ORDERED: FUROSEMIDE 40 MG/4 ML INJECTABLE VIAL IVPUSH ONE (11:45)
[2021-04-17] MEDS: SPIRONOLACTONE 25 MG TABLET PO SCH (11:57)
[2021-04-17] MEDS ORDERED: MIDAZOLAM HCL 2 MG/2 ML SINGLE DOSE VIAL IVPUSH ONE ×2 (12:47→12:49)
[2021-04-17] MEDS: DEXMEDETOMIDINE IN 0.9 % NACL 400 MCG/100 ML VIAL IVPB SCH (15:40)
[2021-04-17] MEDS: CHLORHEXIDINE GLUCONATE 4% CLEANSER FOR DECOLONIZATION TP SCH (22:31)
[2021-04-18] MEDS: DEXMEDETOMIDINE IN 0.9 % NACL 400 MCG/100 ML VIAL IVPB SCH (04:00)
[2021-04-18] MEDS: LACTATED RINGERS SOLUTION 1,000 ML/1,000 ML INFUS.BAG IV SCH ×2 (04:00→13:07)
[2021-04-18 08:10] LABS: BASO % 0.5 % (0-2.0); EOS % 1.2 % (0-4.5); HEMATOCRIT 36.2 % (35.4-49); LYMPH % 22.1 % (8-40); MCH 37.2 pg (25.7-33.7); MCHC 33.1 g/dl (32.0-35.9); MEAN CELL VOLUME 112.4 fl (80-96); MEAN PLT VOLUME 10.5 fl (7.5-11.1); MONO % 8.3 % (3.8-10.2); NEUT % 67.9 % (42.8-82.8); PLATELET COUNT 94 10^3/uL (134-434); RBC 3.22 M/mm3 (4.00-5.60); RDW 14.4 % (11.9-15.9); WHITE BLOOD COUNT 9.6 K/mm3 (4.0-10.0)
[2021-04-18 08:23] LABS: INR 1.63 (0.83-1.09); PROTHROMBIN TIME (PATIENT) 18.8 SEC (9.7-13.0)
[2021-04-18] MEDS ORDERED: MIDAZOLAM HCL 2 MG/2 ML SINGLE DOSE VIAL IVPUSH ONE (08:23)
[2021-04-18] MEDS ORDERED: MIDAZOLAM HCL 2 MG/2 ML SINGLE DOSE VIAL ONE (08:24)
[2021-04-18 08:33] LABS: ALBUMIN 1.5 g/dl (3.4-5.0); BLOOD UREA NITROGEN 15.4 mg/dL (7-18); CALCIUM 7.8 mg/dL (8.5-10.1); MAGNESIUM 1.9 mg/dL (1.8-2.4)
[2021-04-18 08:34] LABS: BILIRUBIN,DIRECT 1.9 mg/dL (0.0-0.2)
[2021-04-18 08:36] LABS: CREATININE 0.6 mg/dL (0.55-1.3); PHOSPHOROUS 2.6 mg/dL (2.5-4.9)
[2021-04-18 08:37] LABS: BILIRUBIN,TOTAL 2.9 mg/dL (0.2-1)
[2021-04-18 08:38] LABS: TOT PROT 7.1 g/dl (6.4-8.2)
[2021-04-18 08:42] LABS: BILIRUBIN,TOTAL 2.9 mg/dL (0.2-1)
[2021-04-18] MEDS ORDERED: cefTRIAXone SODIUM 1 GM VIAL ONE (10:00)
[2021-04-18] MEDS ORDERED: DEXTROSE 5%-WATER - 50 ML IVPB ONE (10:01)
[2021-04-18] MEDS: THIAMINE HCL 200 MG/2 ML VIAL IVPB SCH (10:25)
[2021-04-18] MEDS: CEFTRIAXONE 1 GM in DEXTROSE 5%-WATER - 50 ML IVPB SCH (10:25)
[2021-04-18] MEDS: MUPIROCIN 2% TOPICAL OINTMENT FOR DECOLONIZATION NS SCH ×3 (10:25→22:30)
[2021-04-18] MEDS: SPIRONOLACTONE 25 MG TABLET PO SCH (10:25)
[2021-04-18] MEDS: FOLIC ACID 1 MG TABLET (FP) PO SCH (10:25)
[2021-04-18] MEDS: PANTOPRAZOLE SODIUM 40 MG VIAL IVPUSH SCH (10:25)
[2021-04-18] MEDS ORDERED: LORazepam 2 MG/ML SDV VIAL IVPUSH ONE (11:48)
[2021-04-18] MEDS ORDERED: MIDAZOLAM 100 MG/100 ML MG IVPB ONE (12:47)
[2021-04-18] MEDS: MIDAZOLAM 100 MG in SODIUM CHLORIDE 100 ML IVPB SCH (12:52)
[2021-04-18] MEDS: CHLORHEXIDINE GLUCONATE 4% CLEANSER FOR DECOLONIZATION TP SCH ×2 (20:29→23:04)
[2021-04-18] MEDS: LACTULOSE 20 GM/30 ML UDC (FOR ORAL USE ONLY) NGT SCH (23:03)
[2021-04-19] MEDS: DEXMEDETOMIDINE IN 0.9 % NACL 400 MCG/100 ML VIAL IVPB SCH ×2 (07:00→21:29)
[2021-04-19 07:15] LABS: BASO % 0.8 % (0-2.0); EOS % 2.1 % (0-4.5); HEMATOCRIT 36.1 % (35.4-49); HEMOGLOBIN 12.1 GM/dL (11.7-16.9); LYMPH % 25.1 % (8-40); MCH 37.7 pg (25.7-33.7); MCHC 33.5 g/dl (32.0-35.9); MEAN CELL VOLUME 112.3 fl (80-96); MEAN PLT VOLUME 10.1 fl (7.5-11.1); MONO % 10.8 % (3.8-10.2); NEUT % 61.2 % (42.8-82.8); PLATELET COUNT 96 10^3/uL (134-434); RBC 3.22 M/mm3 (4.00-5.60); RDW 14.1 % (11.9-15.9); WHITE BLOOD COUNT 8.1 K/mm3 (4.0-10.0)
[2021-04-19 07:36] LABS: CALCIUM 7.4 mg/dL (8.5-10.1)
[2021-04-19 07:37] LABS: ALBUMIN 1.4 g/dl (3.4-5.0); BLOOD UREA NITROGEN 16.3 mg/dL (7-18)
[2021-04-19 07:39] LABS: BILIRUBIN,DIRECT 1.7 mg/dL (0.0-0.2)
[2021-04-19 07:40] LABS: CREATININE 0.5 mg/dL (0.55-1.3)
[2021-04-19 07:41] LABS: BILIRUBIN,TOTAL 2.8 mg/dL (0.2-1)
[2021-04-19 08:31] LABS: INR 1.68 (0.83-1.09); PROTHROMBIN TIME (PATIENT) 19.4 SEC (9.7-13.0)
[2021-04-19] MEDS ORDERED: cefTRIAXone SODIUM 1 GM VIAL ONE (09:18)
[2021-04-19] MEDS ORDERED: DEXTROSE 5%-WATER - 50 ML IVPB ONE (09:19)
[2021-04-19] MEDS: PANTOPRAZOLE SODIUM 40 MG VIAL IVPUSH SCH (09:26)
[2021-04-19] MEDS: LACTULOSE 20 GM/30 ML UDC (FOR ORAL USE ONLY) NGT SCH (09:26)
[2021-04-19] MEDS: CEFTRIAXONE 1 GM in DEXTROSE 5%-WATER - 50 ML IVPB SCH (09:26)
[2021-04-19] MEDS: THIAMINE HCL 200 MG/2 ML VIAL IVPB SCH (09:27)
[2021-04-19] MEDS: FOLIC ACID 1 MG TABLET (FP) PO SCH (09:27)
[2021-04-19] MEDS: MUPIROCIN 2% TOPICAL OINTMENT FOR DECOLONIZATION NS SCH ×2 (09:27→21:29)
[2021-04-19 09:38] LABS: ANISOCYTOSIS 0; MACROCYTOSIS 2+; OVALOCYTE 1+; PLATELET ESTIMATE DECREASED; TEAR DROP CELLS 1+
[2021-04-19] MEDS ORDERED: MIDAZOLAM IN 0.9 % SOD.CHLORID 1 MG/1 ML PLAST..BAG ONE ×2 (10:11→21:32)
[2021-04-19] MEDS: MIDAZOLAM 100 MG in SODIUM CHLORIDE 100 ML IVPB SCH (11:35)
[2021-04-19] MEDS: LACTATED RINGERS SOLUTION 1,000 ML/1,000 ML INFUS.BAG IV SCH (13:00)
[2021-04-19] MEDS: DEXTROSE 5%-LACTATED RINGERS 1,000 ML IV SCH ×2 (16:05→23:00)
[2021-04-19] MEDS: CHLORHEXIDINE GLUCONATE 4% CLEANSER FOR DECOLONIZATION TP SCH (21:29)
[2021-04-19] MEDS: LACTULOSE 10 GM/15 ML BULK BOTTLE RC SCH (21:31)
[2021-04-20] MEDS: DEXMEDETOMIDINE IN 0.9 % NACL 400 MCG/100 ML VIAL IVPB SCH ×2 (01:50→20:55)
[2021-04-20] MEDS: MIDAZOLAM 100 MG in SODIUM CHLORIDE 100 ML IVPB SCH (02:00)
[2021-04-20] MEDS: DEXTROSE 5%-LACTATED RINGERS 1,000 ML IV SCH (03:00)
[2021-04-20 06:48] LABS: BASO % 0.6 % (0-2.0); EOS % 3.5 % (0-4.5); HEMATOCRIT 35.9 % (35.4-49); HEMOGLOBIN 11.9 GM/dL (11.7-16.9); LYMPH % 22.2 % (8-40); MCH 37.2 pg (25.7-33.7); MCHC 33.1 g/dl (32.0-35.9); MEAN CELL VOLUME 112.2 fl (80-96); MONO % 13.1 % (3.8-10.2); NEUT % 60.6 % (42.8-82.8); PLATELET COUNT 88 10^3/uL (134-434); RDW 13.8 % (11.9-15.9)
[2021-04-20 07:16] LABS: ALBUMIN 1.2 g/dl (3.4-5.0); BLOOD UREA NITROGEN 13.7 mg/dL (7-18); CALCIUM 7.3 mg/dL (8.5-10.1); MAGNESIUM 1.5 mg/dL (1.8-2.4)
[2021-04-20 07:19] LABS: CREATININE 0.5 mg/dL (0.55-1.3); PHOSPHOROUS 2.8 mg/dL (2.5-4.9)
[2021-04-20 07:20] LABS: TOT PROT 6.3 g/dl (6.4-8.2)
[2021-04-20 07:21] LABS: BILIRUBIN,TOTAL 2.3 mg/dL (0.2-1)
[2021-04-20] MEDS ORDERED: MAGNESIUM SULF 50% (8.12 MEQ/2 ML-1 GM VIAL) IVPB ONE (08:33)
[2021-04-20] MEDS ORDERED: DEXTROSE 5%-WATER - 50 ML IVPB ONE (09:07)
[2021-04-20] MEDS ORDERED: cefTRIAXone SODIUM 1 GM VIAL ONE (09:07)
[2021-04-20] MEDS: MUPIROCIN 2% TOPICAL OINTMENT FOR DECOLONIZATION NS SCH (09:16)
[2021-04-20] MEDS: LACTULOSE 10 GM/15 ML BULK BOTTLE RC SCH (09:17)
[2021-04-20] MEDS: PANTOPRAZOLE SODIUM 40 MG VIAL IVPUSH SCH (09:20)
[2021-04-20] MEDS: FOLIC ACID 1 MG TABLET (FP) PO SCH (09:20)
[2021-04-20] MEDS: CEFTRIAXONE 1 GM in DEXTROSE 5%-WATER - 50 ML IVPB SCH (09:38)
[2021-04-20] MEDS: KCL 10 MEQ IVPB 10 MEQ/100 ML INFUS.BAG IVPB SCH ×2 (10:58→11:55)
[2021-04-20] MEDS: THIAMINE HCL 200 MG/2 ML VIAL IVPB SCH (12:10)
[2021-04-20] MEDS ORDERED: DEXTROSE 5%-LACTATED RINGERS 1,000 ML IV SCH (13:59)
[2021-04-20] MEDS: METOCLOPRAMIDE HCL INJECTION 10 MG/2 ML VIAL IVPUSH SCH ×2 (14:15→21:15)
[2021-04-20] MEDS ORDERED: MIDAZOLAM IN 0.9 % SOD.CHLORID 1 MG/1 ML PLAST..BAG ONE (14:55)
[2021-04-20] MEDS: CHLORHEXIDINE GLUCONATE 4% CLEANSER FOR DECOLONIZATION TP SCH (21:16)
[2021-04-21] MEDS: METOCLOPRAMIDE HCL INJECTION 10 MG/2 ML VIAL IVPUSH SCH ×3 (06:41→21:27)
[2021-04-21 07:53] LABS: ALBUMIN 1.3 g/dl (3.4-5.0); CALCIUM 7.2 mg/dL (8.5-10.1)
[2021-04-21 07:54] LABS: MAGNESIUM 1.6 mg/dL (1.8-2.4)
[2021-04-21 07:56] LABS: PHOSPHOROUS 2.5 mg/dL (2.5-4.9)
[2021-04-21 07:57] LABS: CREATININE 0.5 mg/dL (0.55-1.3)
[2021-04-21 07:58] LABS: BILIRUBIN,TOTAL 2.5 mg/dL (0.2-1); TOT PROT 6.4 g/dl (6.4-8.2)
[2021-04-21 08:21] LABS: HEMATOCRIT 36.4 % (35.4-49); MCH 36.8 pg (25.7-33.7); MCHC 32.9 g/dl (32.0-35.9); MEAN CELL VOLUME 111.9 fl (80-96); MEAN PLT VOLUME 9.1 fl (7.5-11.1); PLATELET COUNT 93 10^3/uL (134-434); RBC 3.25 M/mm3 (4.00-5.60); WHITE BLOOD COUNT 5.9 K/mm3 (4.0-10.0)
[2021-04-21] MEDS ORDERED: cefTRIAXone SODIUM 1 GM VIAL ONE (08:54)
[2021-04-21] MEDS ORDERED: DEXTROSE 5%-WATER - 50 ML IVPB ONE (08:54)
[2021-04-21] MEDS: CEFTRIAXONE 1 GM in DEXTROSE 5%-WATER - 50 ML IVPB SCH (09:02)
[2021-04-21] MEDS: PANTOPRAZOLE SODIUM 40 MG VIAL IVPUSH SCH (09:02)
[2021-04-21] MEDS: MIDAZOLAM 100 MG in SODIUM CHLORIDE 100 ML IVPB SCH (09:02)
[2021-04-21] MEDS: FOLIC ACID 1 MG TABLET (FP) PO SCH (09:03)
[2021-04-21] MEDS ORDERED: FUROSEMIDE 40 MG/4 ML INJECTABLE VIAL IVPUSH ONE (09:54)
[2021-04-21] MEDS: THIAMINE HCL 200 MG/2 ML VIAL IVPB SCH (10:00)
[2021-04-21] MEDS: LACTULOSE 20 GM/30 ML UDC (FOR ORAL USE ONLY) NGT SCH ×2 (13:02→21:28)
[2021-04-21] MEDS ORDERED: LACTULOSE 20 GM/30 ML UDC (FOR ORAL USE ONLY) NGT SCH ×2 (14:00→22:00)
[2021-04-21] MEDS: PROPOFOL 1,000,000 MCG/100 ML VIAL IVPB SCH (17:52)
[2021-04-21] MEDS: DEXMEDETOMIDINE IN 0.9 % NACL 400 MCG/100 ML VIAL IVPB SCH (21:27)
[2021-04-21] MEDS: CHLORHEXIDINE GLUCONATE 4% CLEANSER FOR DECOLONIZATION TP SCH (21:28)
[2021-04-21] MEDS ORDERED: LACTULOSE 20 GM/30 ML UDC (FOR ORAL USE ONLY) PO SCH (22:00)
[2021-04-22] MEDS: PROPOFOL 1,000,000 MCG/100 ML VIAL IVPB SCH ×2 (02:12→18:30)
[2021-04-22] MEDS: METOCLOPRAMIDE HCL INJECTION 10 MG/2 ML VIAL IVPUSH SCH ×3 (05:27→21:10)
[2021-04-22 07:22] LABS: HEMATOCRIT 35.1 % (35.4-49); HEMOGLOBIN 11.6 GM/dL (11.7-16.9); MCH 37.1 pg (25.7-33.7); MCHC 33.2 g/dl (32.0-35.9); MEAN CELL VOLUME 111.9 fl (80-96); MEAN PLT VOLUME 9.4 fl (7.5-11.1); PLATELET COUNT 96 10^3/uL (134-434); RBC 3.14 M/mm3 (4.00-5.60); WHITE BLOOD COUNT 6.4 K/mm3 (4.0-10.0)
[2021-04-22 07:55] LABS: ALBUMIN 1.3 g/dl (3.4-5.0); BLOOD UREA NITROGEN 14.8 mg/dL (7-18); CALCIUM 7.3 mg/dL (8.5-10.1); MAGNESIUM 1.8 mg/dL (1.8-2.4)
[2021-04-22 07:58] LABS: CREATININE 0.6 mg/dL (0.55-1.3); PHOSPHOROUS 3.5 mg/dL (2.5-4.9)
[2021-04-22 08:00] LABS: BILIRUBIN,TOTAL 2.1 mg/dL (0.2-1); TOT PROT 6.4 g/dl (6.4-8.2)
[2021-04-22] MEDS ORDERED: DEXTROSE 5%-WATER - 50 ML IVPB ONE (08:32)
[2021-04-22] MEDS ORDERED: cefTRIAXone SODIUM 1 GM VIAL ONE (08:32)
[2021-04-22] MEDS: CEFTRIAXONE 1 GM in DEXTROSE 5%-WATER - 50 ML IVPB SCH (09:01)
[2021-04-22] MEDS: THIAMINE HCL 200 MG/2 ML VIAL IVPB SCH (09:01)
[2021-04-22] MEDS: LACTULOSE 20 GM/30 ML UDC (FOR ORAL USE ONLY) NGT SCH (09:01)
[2021-04-22] MEDS: PANTOPRAZOLE SODIUM 40 MG VIAL IVPUSH SCH (09:01)
[2021-04-22] MEDS: FOLIC ACID 1 MG TABLET (FP) PO SCH (09:02)
[2021-04-22] MEDS ORDERED: LORazepam 2 MG/ML SDV VIAL IVPUSH ONE (12:30)
[2021-04-22] MEDS: methaDONE HCL 40 MG DISPERSABLE TABLET PO SCH ×2 (15:51→16:00)
[2021-04-22] MEDS ORDERED: ACETAMINOPHEN 1000 MG/100 ML BAG IVPB PRN (17:51)
[2021-04-22] MEDS: DEXMEDETOMIDINE IN 0.9 % NACL 400 MCG/100 ML VIAL IVPB SCH (21:04)
[2021-04-22] MEDS: CHLORHEXIDINE GLUCONATE 4% CLEANSER FOR DECOLONIZATION TP SCH (21:10)
[2021-04-22] MEDS: LACTULOSE 20 GM/30 ML UDC (FOR ORAL USE ONLY) PO SCH ×2 (21:10→21:15)
[2021-04-23] MEDS: methaDONE HCL 40 MG DISPERSABLE TABLET PO SCH (05:26)
[2021-04-23] MEDS: METOCLOPRAMIDE HCL INJECTION 10 MG/2 ML VIAL IVPUSH SCH ×3 (05:29→23:06)
[2021-04-23 07:49] LABS: CALCIUM 7.6 mg/dL (8.5-10.1)
[2021-04-23 07:50] LABS: MAGNESIUM 1.7 mg/dL (1.8-2.4)
[2021-04-23 07:51] LABS: BASO % 0.4 % (0-2.0); EOS % 0.4 % (0-4.5); HEMATOCRIT 35.7 % (35.4-49); LYMPH % 12.4 % (8-40); MCH 37.2 pg (25.7-33.7); MCHC 33.7 g/dl (32.0-35.9); MEAN CELL VOLUME 110.4 fl (80-96); MEAN PLT VOLUME 8.4 fl (7.5-11.1); MONO % 11.5 % (3.8-10.2); NEUT % 75.3 % (42.8-82.8); PLATELET COUNT 131 10^3/uL (134-434); RBC 3.23 M/mm3 (4.00-5.60); RDW 13.9 % (11.9-15.9); WHITE BLOOD COUNT 10.9 K/mm3 (4.0-10.0)
[2021-04-23 07:52] LABS: BILIRUBIN,DIRECT 1.7 mg/dL (0.0-0.2)
[2021-04-23 07:53] LABS: CREATININE 0.6 mg/dL (0.55-1.3); PHOSPHOROUS 2.5 mg/dL (2.5-4.9)
[2021-04-23 07:54] LABS: TOT PROT 7.4 g/dl (6.4-8.2)
[2021-04-23 07:55] LABS: BILIRUBIN,TOTAL 2.6 mg/dL (0.2-1)
[2021-04-23 07:56] LABS: ALBUMIN 1.7 g/dl (3.4-5.0)
[2021-04-23 08:34] LABS: INR 2.11 (0.83-1.09); PROTHROMBIN TIME (PATIENT) 24.4 SEC (9.7-13.0)
[2021-04-23 08:58] LABS: ANISOCYTOSIS 2+; MACROCYTOSIS 2+; PLATELET ESTIMATE DECREASED
[2021-04-23] MEDS ORDERED: DEXTROSE 5%-WATER - 50 ML IVPB ONE (09:12)
[2021-04-23] MEDS ORDERED: cefTRIAXone SODIUM 1 GM VIAL ONE (09:12)
[2021-04-23] MEDS: CEFTRIAXONE 1 GM in DEXTROSE 5%-WATER - 50 ML IVPB SCH (09:14)
[2021-04-23] MEDS: THIAMINE HCL 200 MG/2 ML VIAL IVPB SCH (09:17)
[2021-04-23] MEDS: FOLIC ACID 1 MG TABLET (FP) PO SCH ×2 (09:17→09:30)
[2021-04-23] MEDS: LACTULOSE 20 GM/30 ML UDC (FOR ORAL USE ONLY) PO SCH ×3 (09:17→21:59)
[2021-04-23] MEDS: PANTOPRAZOLE SODIUM 40 MG VIAL IVPUSH SCH (09:17)
[2021-04-23] MEDS ORDERED: MAGNESIUM SULF 50% (8.12 MEQ/2 ML-1 GM VIAL) IVPB ONE (11:27)
[2021-04-23] MEDS ORDERED: AMINO ACIDS 4.25%/D5W 1,000 ML IV SCH (13:45)
[2021-04-23] MEDS ORDERED: MULTIVIT INJ. ADULT COMBO WITH VIT K 1 COMBO 10 ML VIAL IV ONE (14:00)
[2021-04-23] MEDS ORDERED: PHYTONADIONE 10 MG/1 ML AMP IVPB ONE (14:34)
[2021-04-23] MEDS: AMINO ACIDS 4.25%/D5W 1,000 ML IV SCH (18:09)
[2021-04-23] MEDS ORDERED: LORazepam 2 MG/ML SDV VIAL IVPUSH ONE (20:51)
[2021-04-23] MEDS: CHLORHEXIDINE GLUCONATE 4% CLEANSER FOR DECOLONIZATION TP SCH (21:59)
[2021-04-24] MEDS: METOCLOPRAMIDE HCL INJECTION 10 MG/2 ML VIAL IVPUSH SCH (06:31)
[2021-04-24] MEDS: methaDONE HCL 40 MG DISPERSABLE TABLET PO SCH (06:57)
[2021-04-24 07:07] LABS: BASO % 0.6 % (0-2.0); EOS % 2.6 % (0-4.5); HEMATOCRIT 33.4 % (35.4-49); HEMOGLOBIN 11.2 GM/dL (11.7-16.9); LYMPH % 18.1 % (8-40); MCH 37.2 pg (25.7-33.7); MCHC 33.6 g/dl (32.0-35.9); MEAN CELL VOLUME 110.6 fl (80-96); MEAN PLT VOLUME 8.4 fl (7.5-11.1); MONO % 12.3 % (3.8-10.2); NEUT % 66.4 % (42.8-82.8); PLATELET COUNT 112 10^3/uL (134-434); RBC 3.02 M/mm3 (4.00-5.60); RDW 14.1 % (11.9-15.9)
[2021-04-24 07:22] LABS: ALBUMIN 1.6 g/dl (3.4-5.0); CALCIUM 7.5 mg/dL (8.5-10.1)
[2021-04-24 07:23] LABS: BLOOD UREA NITROGEN 12.5 mg/dL (7-18); MAGNESIUM 1.8 mg/dL (1.8-2.4)
[2021-04-24 07:26] LABS: CREATININE 0.5 mg/dL (0.55-1.3); PHOSPHOROUS 2.1 mg/dL (2.5-4.9)
[2021-04-24 07:27] LABS: BILIRUBIN,TOTAL 2.1 mg/dL (0.2-1); TOT PROT 6.9 g/dl (6.4-8.2)
[2021-04-24] MEDS ORDERED: MAGNESIUM OXIDE 400 MG TABLET (FP) PO ONE (07:54)
[2021-04-24] MEDS ORDERED: POTASSIUM PHOSPHATE 30 MM in SODIUM CHLORIDE 250 ML IVPB ONE ×2 (08:52→09:00)
[2021-04-24] MEDS: THIAMINE HCL 200 MG/2 ML VIAL IVPB SCH ×3 (09:07→22:46)
[2021-04-24] MEDS: PANTOPRAZOLE SODIUM 40 MG VIAL IVPUSH SCH (09:07)
[2021-04-24] MEDS: LACTULOSE 20 GM/30 ML UDC (FOR ORAL USE ONLY) PO SCH ×2 (09:08→22:45)
[2021-04-24] MEDS: FOLIC ACID 1 MG TABLET (FP) PO SCH (09:08)
[2021-04-24] MEDS ORDERED: LORazepam 2 MG/ML SDV VIAL IVPUSH PRN (09:47)
[2021-04-24] MEDS ORDERED: SILVER SULFADIAZINE 1% TOP CREAM 50 GM JAR TP SCH (10:00)
[2021-04-24] MEDS ORDERED: PHYTONADIONE 10 MG/1 ML AMP IVPB ONE (13:12)
[2021-04-24] MEDS: AMINO ACIDS 4.25%/D5W 1,000 ML IV SCH (14:00)
[2021-04-24] MEDS ORDERED: CHLORHEXIDINE GLUCONATE 4% CLEANSER FOR DECOLONIZATION TP SCH (22:00)
[2021-04-24] MEDS ORDERED: AMINO ACIDS 4.25%/D5W 1,000 ML IV SCH (22:30)
[2021-04-24] MEDS ORDERED: MULTIVIT INJ. ADULT COMBO WITH VIT K 1 COMBO 10 ML VIAL IV SCH (22:30)
[2021-04-25] MEDS: SILVER SULFADIAZINE 1% TOP CREAM 400 GM JAR TP SCH ×2 (01:10→10:41)
[2021-04-25] MEDS: CHLORHEXIDINE GLUCONATE 4% CLEANSER FOR DECOLONIZATION TP SCH (04:30)
[2021-04-25] MEDS: LACTULOSE 20 GM/30 ML UDC (FOR ORAL USE ONLY) PO SCH ×2 (04:30→10:41)
[2021-04-25] MEDS ORDERED: methaDONE HCL 40 MG DISPERSABLE TABLET PO SCH (06:00)
[2021-04-25 06:40] VITALS: BP 143/73; PULSE 83; TEMP 98.9
[2021-04-25] MEDS ORDERED: PANTOPRAZOLE SODIUM 40 MG VIAL IVPUSH SCH (10:00)
[2021-04-25] MEDS ORDERED: FOLIC ACID 1 MG TABLET (FP) PO SCH (10:00)
[2021-04-25 10:30] VITALS: BMI 27.9
[2021-04-25] MEDS: THIAMINE HCL 200 MG/2 ML VIAL IVPB SCH (10:41)
[2021-04-25] MEDS ORDERED: AMINO ACIDS 4.25%/D5W 1,000 ML IV SCH (13:00)
[2021-04-25] MEDS ORDERED: MULTIVIT INJ. ADULT COMBO WITH VIT K 1 COMBO 10 ML VIAL IV SCH (13:00)
[2021-04-25] MEDS ORDERED: MULTIVIT INJECTION ADULT 10 ML in AMINO ACIDS 4.25%/D5W 1,000 ML IV SCH (13:45)
== END 2021-04-25 11:41 | disposition left against medical advice (07) | DRG 130 ==
LOC: JER 14:58 → UNDOADMIN 16:30 → JERBED 16:30 → JICU 18:44 → J7W 04-24 21:25
PROVIDERS: ADMIT Internal Medicine; ATTEND Internal Medicine
PROC: 5A1955Z Respiratory Ventilation, Greater than 96 Consecutive Hours (ICD-10-PCS; principal; 2021-04-15)
PROC: 0BH17EZ Insertion of Endotracheal Airway into Trachea, Via Natural or Artificial Opening (ICD-10-PCS; 2021-04-15)
DX: J96.00 Acute respiratory failure, unspecified whether with hypoxia or hypercapnia (principal); D68.9 Coagulation defect, unspecified; E87.2 Acidosis; K85.20 Alcohol induced acute pancreatitis without necrosis or infection; M62.82 Rhabdomyolysis; D37.1 Neoplasm of uncertain behavior of stomach; F10.239 Alcohol dependence with withdrawal, unspecified; F11.23 Opioid dependence with withdrawal; G40.909 Epilepsy, unspecified, not intractable, without status epilepticus; K52.9 Noninfective gastroenteritis and colitis, unspecified; K70.30 Alcoholic cirrhosis of liver without ascites; D69.6 Thrombocytopenia, unspecified; K56.7 Ileus, unspecified
CPT/HCPCS: 36415; 36600; 70450-TC; 71045-TC-FY; 74177-TC; 76705-TC; 80048; 80053; 80061; 80076; 80307; 81003; 82105; 82140; 82150; 82248; 82378; 82550; 82553; 82607; 82746; 82803; 82962; 83540; 83550; 83605; 83690; 83735; 83880; 84100; 84478; 84484; 85025; 85027; 85610; 85730; 86140; 86301; 86705; 86803; 87040; 87086; 87186; 87340; 87517; 87522; 93005; 93010; 93306-TC; 93971; 94002; 97116-GP; 97161-GP; 99285-25; C9803; J0131; Q9967; U0003; U0005